=== PATIENT | female | born 1985 | race African-American/Black ===

== ENCOUNTER 2021-10-08 13:12 | Observation (INO) | payer MEDICAID | END 2021-10-08 14:15 | disposition home or self-care (01) | LOC: 8 EST A/PP 13:12 | PROVIDERS: ADMIT Specialist; ATTEND Specialist | DX: O26.893 Other specified pregnancy related conditions, third trimester (principal); R10.30 Lower abdominal pain, unspecified; O62.9 Abnormality of forces of labor, unspecified; Z3A.37 37 weeks gestation of pregnancy | CPT/HCPCS: 59025; G0378; 99281; G0379 ==